=== PATIENT | female | born 1995 | race Caucasian/White ===

== ENCOUNTER 2017-08-12 14:49 | Outpatient (CLI) | payer BC ==
[~2017-08-12 14:49] MED LIST: CLARITIN PO
== END 2017-08-12 19:50 | disposition home or self-care (01) ==
LOC: SRD 14:49
PROVIDERS: ATTEND Pediatrics
DX: S49.82XA Other specified injuries of left shoulder and upper arm, initial encounter (principal); X58.XXXA Exposure to other specified factors, initial encounter; Y93.89 Activity, other specified; Y92.89 Other specified places as the place of occurrence of the external cause; Y99.8 Other external cause status
CPT/HCPCS: 73030